=== PATIENT | male | born 1980 | race Caucasian/White ===

== ENCOUNTER 2016-11-29 17:04 | Emergency (ER) | payer OTHER ==
[2016-11-29 17:16] VITALS: BP 112/73; PULSE 88; TEMP 99; BMI 28.6
[2016-11-29] MEDS ORDERED: IBUPROFEN 400 MG TABLET (FP) PO ONE ×2 (18:13→18:16)
--- NOTE | 2016-11-29 18:17 | PDOC ---
History of Present Illness - General Chief Complaint: Cold Symptoms Stated Complaint: COLD SYMPTOMS Time Seen by Provider: 11/29/16 17:54 History Source: Patient - History of Present Illness Timing/Duration: reports: other Severity: reports: moderate Associated Symptoms: reports: chest pain/soreness, cough, fever/chills, nasal congestion, shortness of breath. denies: earache, facial pain, sore throat Past History - Past Medical History Allergies/Adverse Reactions: Allergies Allergy/AdvReac Type Severity Reaction Status Date / Time No Known Allergies Allergy Verified 11/29/16 17:13 Home Medications: Ambulatory Orders Emtricitabine/Tenofovir [Truvada Tablet] 1 each PO DAILY 01/30/13 Indinavir Sulfate [Crixivan] 0 mg PO DAILY 08/01/14 Ritonavir [Norvir] 100 mg PO DAILY 08/01/14 Darunavir Ethanolate [Prezista] 800 mg PO DAILY tablet 08/02/14 Ibuprofen 800 mg PO TID PRN #20 tablet 03/22/16 Anemia: No Asthma: No Cancer: No Cardiac Disorders: No CVA: No COPD: No CHF: No Dementia: No Diabetes: No GI Disorders: No Disorders: No HTN: No Hypercholesterolemia: No HIV: Yes Liver Disease: No Suicide Attempt (Hx): No Seizures: No Thyroid Disease: No - Surgical History Abdominal Surgery: No Appendectomy: No Cardiac Surgery: No Cholecystectomy: No Lung Surgery: No Neurologic Surgery: No Orthopedic Surgery: No - Immunization History Immunization Up to Date: Yes - Psycho/Social/Smoking Cessation Hx Anxiety: No Suicidal Ideation: No Smoking Status: Yes Smoking History: Current some day smoker Have you smoked in the past 12 months: Yes Number of Cigarettes Smoked Daily: 2 Cigars Per Day: 0 Information on smoking cessation initiated: No 'Breaking Loose' booklet given: 12/02/13 Hx Alcohol Use: No Drug/Substance Use Hx: No Substance Use Type: Alcohol Hx Substance Use Treatment: No Respiratory Specific PMHX - Complaint Specific PMHX TB (Tuberculosis): No Review of Systems - Review of Systems Constitutional: Yes: Chills, Fever, Malaise HEENTM: No: Ear Pain, Throat Pain Respiratory: Yes: Cough, Shortness of Breath. No: Wheezing ABD/GI: No: Diarrhea, Nausea, Vomiting *Physical Exam - Vital Signs Last Vital Signs Temp Pulse Resp BP Pulse Ox 99 F 88 20 112/73 97 11/29/16 17:13 11/29/16 17:13 11/29/16 17:13 11/29/16 17:13 11/29/16 17:13 - Physical Exam General Appearance: Yes: Appropriately Dressed. No: Apparent Distress HEENT: positive: Normal ENT Inspection, Normal Voice. negative: Scleral Icterus (R), Scleral Icterus (L), Muffled/Hoarse voice Neck: positive: Supple. negative: Lymphadenopathy (R), Lymphadenopathy (L) Respiratory/Chest: positive: Lungs Clear, Normal Breath Sounds. negative: Respiratory Distress Cardiovascular: positive: Regular Rate, S1, S2 Integumentary: positive: Dry, Warm Neurologic: positive: Fully Oriented, Alert, Normal Mood/Affect ED Treatment Course - RADIOLOGY Radiology Studies Ordered: Category Date Time Status CHEST PA & LAT [RAD] Stat Radiology 11/29/16 18:14 Ordered Medical Decision Making - Medical Decision Making 11/29/16 18:14 36-year-old male smoker, HIV, on meds, last CD4 in the 800s, undetected VL, f/u at [facility], here with malaise with body aches, nasal congestion, cough with ? shortness of breath and subjective fevers 2 days. No DUARTE, dizziness, neck stiffness, photophobia, n/v/d. Not takign anything for symptoms. Patient stable in ED but appears uncomfortable with unremarkable exam otherwise. M/l viral syndrome, r/o influenza and pna given hx. Pain control in ED 11/29/16 18:17 11/29/16 18:59 Influenza neg and cxr neg. Dc w/ supportive tx *DC/Admit/Observation/Transfer Diagnosis at time of Disposition: Viral syndrome - Discharge Dispostion Disposition: HOME Condition at time of disposition: Stable - Patient Instructions Printed Discharge Instructions: DI for Viral Syndrome Additional Instructions: Rest, drink plenty of fluids and take tylenol or motrin as needed
== END 2016-11-29 19:10 | disposition home or self-care (01) ==
LOC: JERFT 17:04 → JER 17:04 → JERFT 19:10
DX: B34.9 Viral infection, unspecified (principal); Z21 Asymptomatic human immunodeficiency virus [HIV] infection status; F17.210 Nicotine dependence, cigarettes, uncomplicated
CPT/HCPCS: 71020-TC; 87804; 99281-25

== ENCOUNTER 2017-03-27 00:55 | Emergency (ER) | payer OTHER ==
[2017-03-27 01:12] VITALS: BMI 29.0
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
[2017-03-27] MEDS ORDERED: CLINDAMYCIN 600MG PREMIX IVPB 50 ML IVPB ONE ×2 (02:40→03:37)
[2017-03-27 02:59] LABS: BASOPHIL 0.7 % (0-2.0); EOSINOPHIL 1.2 % (0-4.5); MCH 32.3 pg (25.7-33.7); MCHC 33.2 g/dl (32.0-35.9); MEAN CELL VOLUME 97.4 fl (80-96); MEAN PLT VOLUME 7.9 fl (7.5-11.1); PLATELET COUNT 214 K/MM3 (134-434); RDW 13.9 % (11.9-15.9); WHITE BLOOD COUNT 10.1 K/mm3 (4.0-10.0)
[2017-03-27 03:23] LABS: ALK PHOS 73 U/L (45-117); ANION GAP 12 (8-16); CALCIUM 9.1 mg/dL (8.5-10.1); CO2 26 mmol/L (21-32); CREATININE 1.2 mg/dL (0.7-1.3); GLUCOSE,RANDOM 105 mg/dL (74-106); SGPT/ALT 39 U/L (12-78); TOT PROT 7.1 g/dl (6.4-8.2)
[2017-03-27 03:27] LABS: SGOT/AST 82 U/L (15-37)
[2017-03-27 04:28] VITALS: BP 120/74; PULSE 72; TEMP 97.8
== END 2017-03-27 04:28 | disposition home or self-care (01) ==
LOC: JER 00:55
DX: S00.83XA Contusion of other part of head, initial encounter (principal); S20.212A Contusion of left front wall of thorax, initial encounter; K04.7 Periapical abscess without sinus; Y04.2XXA Assault by strike against or bumped into by another person, initial encounter; Y93.89 Activity, other specified; Y92.59 Other trade areas as the place of occurrence of the external cause
CPT/HCPCS: 36415; 70450-TC; 70486-TC; 71250-TC; 80053; 85025; 87040; 99283-25

== ENCOUNTER 2017-06-04 10:01 | Emergency (ER) | payer OTHER ==
[2017-06-04 10:07] VITALS: TEMP 98; BMI 28.9
--- NOTE | 2017-06-04 10:26 | PDOC ---
History of Present Illness - General Chief Complaint: Revisit, Lab Variance Stated Complaint: PCP SENT/ [facility] Time Seen by Provider: 06/04/17 10:24 History Source: Patient Exam Limitations: No Limitations - History of Present Illness Initial Comments: 06/04/17 10:25 was sent for repeat potassium Past History - Travel Traveled outside of the country in the last 30 days: Yes Close contact w/someone who was outside of country & ill: Yes - Past Medical History Allergies/Adverse Reactions: Allergies Allergy/AdvReac Type Severity Reaction Status Date / Time No Known Allergies Allergy Verified 06/04/17 10:06 Home Medications: Ambulatory Orders Emtricitabine/Tenofovir [Truvada Tablet] 1 each PO DAILY 01/30/13 Indinavir Sulfate [Crixivan] 0 mg PO DAILY 08/01/14 Ritonavir [Norvir] 100 mg PO DAILY 08/01/14 Darunavir Ethanolate [Prezista] 800 mg PO DAILY tablet 08/02/14 Ibuprofen 800 mg PO TID PRN #20 tablet 03/22/16 Clindamycin [Cleocin -] 300 mg PO Q6HPO #28 capsule 03/27/17 Anemia: No Asthma: No Cancer: No Cardiac Disorders: No CVA: No COPD: No CHF: No Dementia: No Diabetes: No GI Disorders: No Disorders: No HTN: No Hypercholesterolemia: Yes HIV: Yes Liver Disease: No Suicide Attempt (Hx): No Seizures: No Thyroid Disease: No - Surgical History Abdominal Surgery: No Appendectomy: No Cardiac Surgery: No Cholecystectomy: No Lung Surgery: No Neurologic Surgery: No Orthopedic Surgery: No - Immunization History Immunization Up to Date: Yes - Psycho/Social/Smoking Cessation Hx Anxiety: No Suicidal Ideation: No Smoking Status: Yes Smoking History: Current some day smoker Have you smoked in the past 12 months: Yes Number of Cigarettes Smoked Daily: 5 Cigars Per Day: 0 Information on smoking cessation initiated: No 'Breaking Loose' booklet given: 12/02/13 Hx Alcohol Use: No Drug/Substance Use Hx: No Substance Use Type: Alcohol Hx Substance Use Treatment: No Review of Systems - Review of Systems Able to Perform ROS?: Yes Is the patient limited Nepali proficient: Yes Constitutional: Yes: Symptoms Reported *Physical Exam - Vital Signs Last Vital Signs Temp Pulse Resp BP Pulse Ox 98 F 64 18 129/78 99 06/04/17 10:03 06/04/17 10:03 06/04/17 10:03 06/04/17 10:03 06/04/17 10:03
--- NOTE | 2017-06-04 10:41 | PDOC ---
History of Present Illness - General Chief Complaint: Revisit, Lab Variance Stated Complaint: PCP SENT/ [facility] Time Seen by Provider: 06/04/17 10:24 History Source: Patient - History of Present Illness Associated Symptoms: denies: chest pain, cough, fever/chills, headaches, malaise , nausea/vomiting, shortness of breath, weakness Past History - Past Medical History Allergies/Adverse Reactions: Allergies Allergy/AdvReac Type Severity Reaction Status Date / Time No Known Allergies Allergy Verified 06/04/17 10:06 Home Medications: Ambulatory Orders Emtricitabine/Tenofovir [Truvada Tablet] 1 each PO DAILY 01/30/13 Indinavir Sulfate [Crixivan] 0 mg PO DAILY 08/01/14 Ritonavir [Norvir] 100 mg PO DAILY 08/01/14 Darunavir Ethanolate [Prezista] 800 mg PO DAILY tablet 08/02/14 Ibuprofen 800 mg PO TID PRN #20 tablet 03/22/16 Clindamycin [Cleocin -] 300 mg PO Q6HPO #28 capsule 03/27/17 Anemia: No Asthma: No Cancer: No Cardiac Disorders: No CVA: No COPD: No CHF: No Dementia: No Diabetes: No GI Disorders: No Disorders: No HTN: No Hypercholesterolemia: Yes HIV: Yes Liver Disease: No Suicide Attempt (Hx): No Seizures: No Thyroid Disease: No - Surgical History Abdominal Surgery: No Appendectomy: No Cardiac Surgery: No Cholecystectomy: No Lung Surgery: No Neurologic Surgery: No Orthopedic Surgery: No - Immunization History Immunization Up to Date: Yes - Psycho/Social/Smoking Cessation Hx Anxiety: No Suicidal Ideation: No Smoking Status: Yes Smoking History: Current some day smoker Have you smoked in the past 12 months: Yes Number of Cigarettes Smoked Daily: 5 Cigars Per Day: 0 Information on smoking cessation initiated: No 'Breaking Loose' booklet given: 12/02/13 Hx Alcohol Use: No Drug/Substance Use Hx: No Substance Use Type: Alcohol Hx Substance Use Treatment: No Review of Systems - Review of Systems Is the patient limited Armenian proficient: Yes Constitutional: No: Chills, Fever, Malaise, Weakness HEENTM: No: Blurred Vision Respiratory: No: Cough, Shortness of Breath Cardiac (ROS): No: Chest Pain ABD/GI: No: Diarrhea, Nausea, Vomiting : No: Dysuria *Physical Exam - Vital Signs Last Vital Signs Temp Pulse Resp BP Pulse Ox 98 F 64 18 129/78 99 06/04/17 10:03 06/04/17 10:03 06/04/17 10:03 06/04/17 10:03 06/04/17 10:03 - Physical Exam General Appearance: Yes: Appropriately Dressed. No: Apparent Distress HEENT: positive: Normal Voice Neck: positive: Supple Respiratory/Chest: positive: Lungs Clear, Normal Breath Sounds. negative: Respiratory Distress Cardiovascular: positive: Regular Rate, S1, S2 Gastrointestinal/Abdominal: positive: Soft. negative: Tender Extremity: positive: Normal Inspection Integumentary: positive: Dry, Warm Neurologic: positive: Fully Oriented, Alert, Normal Mood/Affect Heart Score/ECG Review - ECG Intrepretation Comment:: 06/04/17 10:42 NSR w/ ?peaked Ts, no ST-T wave changes otherwise ED Treatment Course - LABORATORY CBC & Chemistry Diagram: 06/04/17 10:48 06/04/17 10:27 Medical Decision Making - Medical Decision Making 06/04/17 10:34 36-year-old male history of HIV on medications, CD4 in the 500s.UD VL, here for repeat blood work. Patient states he went for his checkup with his PMD at [facility] 5 days ago and received call yesterday that his potassium was "high" but does not remember number. Is not complaining of any acute medical symptoms at this time. Of note, pt admitted to ED nurse that he currently drinks "banana shakes" several times per day See exam Hyperkalemia on routine blood work this week No acute medical complaints Stable and well payam w/ unremarkable exam -ekg -labs -dispo pending 06/04/17 10:41 06/04/17 11:51 K 4.5. Rest of labs normal. Will dc w/ continued PMD f/u. Pt instructed to decrease his banana shake consumption as possibly attributed to prior elevated K *DC/Admit/Observation/Transfer Diagnosis at time of Disposition: Laboratory test - Discharge Dispostion Disposition: HOME Condition at time of disposition: Good - Patient Instructions Printed Discharge Instructions: DI for Hyperkalemia Additional Instructions: Your potassium was normal today at 4.5. Bananas are rich in potassium. Consider decreasing your consumption. Follow up with your PMD
[2017-06-04 11:03] LABS: BASOPHIL 0.9 % (0-2.0); MCH 33.4 pg (25.7-33.7); MCHC 33.6 g/dl (32.0-35.9); MEAN CELL VOLUME 99.4 fl (80-96); MEAN PLT VOLUME 7.5 fl (7.5-11.1); NEUTROPHILS 54.8 % (42.8-82.8); PLATELET COUNT 200 K/MM3 (134-434); RDW 13.9 % (11.9-15.9); WHITE BLOOD COUNT 6.7 K/mm3 (4.0-10.0)
[2017-06-04 11:21] LABS: URINE APPEARANCE CLEAR; URINE BILIRUBIN NEGATIVE (NEGATIVE); URINE BLOOD 1+ (NEGATIVE); URINE COLOR STRAW; URINE GLUCOSE (UA) NEGATIVE (NEGATIVE); URINE KETONE NEGATIVE (NEGATIVE); URINE LEUK ESTERASE NEGATIVE (NEGATIVE); URINE NITRITE NEGATIVE (NEGATIVE); URINE PROTEIN NEGATIVE (NEGATIVE); URINE UROBILINOGEN NEGATIVE mg/dL (0.2-1.0)
[2017-06-04 11:27] LABS: URINE MUCUS RARE; URINE RBC <1 /hpf (0-3)
[2017-06-04 11:35] LABS: ALK PHOS 70 U/L (45-117); ANION GAP 6 (8-16); BILIRUBIN,TOTAL 0.5 mg/dL (0.2-1.0); CALCIUM 9.3 mg/dL (8.5-10.1); CO2 25 mmol/L (21-32); CREATININE 0.9 mg/dL (0.7-1.3); GLUCOSE,RANDOM 92 mg/dL (74-106); SGOT/AST 29 U/L (15-37); SGPT/ALT 35 U/L (12-78); TOT PROT 7.3 g/dl (6.4-8.2)
[2017-06-04 12:24] VITALS: BP 118/65; PULSE 72
--- NOTE | 2017-06-05 09:14 | EKG ---
Test Reason : Blood Pressure : / mmHG Vent. Rate : 058 BPM Atrial Rate : 058 BPM P-R Int : 158 ms QRS Dur : 090 ms QT Int : 404 ms P-R-T Axes : 043 062 025 degrees QTc Int : 396 ms SINUS BRADYCARDIA OTHERWISE NORMAL ECG NO PREVIOUS ECGS AVAILABLE Confirmed by WILL DONNELLY MD ([id number]) on 06/05/2017 9:14:05 AM Referred By: Confirmed By:WILL DONNELLY MD
== END 2017-06-04 12:24 | disposition home or self-care (01) ==
LOC: JERFT 10:01 → JER 10:01
DX: E87.5 Hyperkalemia (principal); E78.00 Pure hypercholesterolemia, unspecified; Z21 Asymptomatic human immunodeficiency virus [HIV] infection status
CPT/HCPCS: 36415; 80053; 81003; 81015; 85025; 93005; 93010; 99284-25

== ENCOUNTER 2019-02-27 07:32 | Emergency (ER) | payer OTHER ==
[2019-02-27 07:44] VITALS: BMI 28.7
[2019-02-27] MEDS ORDERED: SODIUM CHLORIDE 1,000 ML IV STA (08:21)
[2019-02-27] MEDS ORDERED: METOCLOPRAMIDE HCL INJECTION 10 MG/2 ML VIAL IVPUSH ONE (08:22)
[2019-02-27] MEDS ORDERED: METOCLOPRAMIDE HCL INJECTION 10 MG/2 ML VIAL ONE (08:38)
[2019-02-27 09:15] LABS: BASO % 0.3 % (0-2.0); EOS % 1.3 % (0-4.5); HEMATOCRIT 41.9 % (35.4-49); HEMOGLOBIN 14.2 GM/dL (11.7-16.9); LYMPH % 28.4 % (8-40); MCH 32.4 pg (25.7-33.7); MCHC 33.8 g/dl (32.0-35.9); MEAN CELL VOLUME 95.8 fl (80-96); MEAN PLT VOLUME 7.3 fl (7.5-11.1); MONO % 9.2 % (3.8-10.2); NEUT % 60.8 % (42.8-82.8); PLATELET COUNT 235 K/MM3 (134-434); RBC 4.38 M/mm3 (4.00-5.60); RDW 13.6 % (11.9-15.9); WHITE BLOOD COUNT 6.3 K/mm3 (4.0-10.0)
--- NOTE | 2019-02-27 09:35 | PDOC ---
Documentation entered by Marly Anthony SCRIBE, acting as scribe for Jose Douglas MD. Jose Douglas MD: This documentation has been prepared by the Gabrielle birmingham Sammi, SCRIBE, under my direction and personally reviewed by me in its entirety. I confirm that the documentation accurately reflects all work, treatment, procedures, and medical decision making performed by me. History of Present Illness - General Chief Complaint: Syncope/Near Syncope Stated Complaint: SYNCOPE,VOMITING Time Seen by Provider: 02/27/19 07:44 - History of Present Illness Initial Comments: 02/27/19 08:30 Patient is a 38 year old male, who presents s/p syncope. Patient complaining of 1 week of dizziness, aggravated with movement, with associated nausea, head pain and echo in ears. Denies vomit. notes the patient passed out for 3 -4 seconds. Patient has history of high cholesterol and is HIV positive. Past History - Past Medical History Allergies/Adverse Reactions: Allergies Allergy/AdvReac Type Severity Reaction Status Date / Time No Known Allergies Allergy Verified 02/27/19 07:40 Home Medications: Ambulatory Orders Darunavir Ethanolate [Prezista] 800 mg PO DAILY tablet 08/02/14 Elviteg/Cob/Emtri/Tenof Alafen [Genvoya (Non-Formulary)] 2 each PO DAILY Fenofibrate Nanocrystallized [Fenofibrate] 145 mg PO DAILY 02/27/19 Meclizine HCl [Antivert -] 25 mg PO TID #21 tablet 02/27/19 Pravastatin Sodium [Pravachol (Nf)] 20 mg PO HS 02/27/19 Anemia: No Asthma: No Cancer: No Cardiac Disorders: No CVA: No COPD: No CHF: No Dementia: No Diabetes: No GI Disorders: No Disorders: No HTN: No Hypercholesterolemia: No Liver Disease: No Seizures: No Thyroid Disease: No - Surgical History Abdominal Surgery: No Appendectomy: No Cardiac Surgery: No Cholecystectomy: No Lung Surgery: No Neurologic Surgery: No Orthopedic Surgery: No - Immunization History Immunization Up to Date: Yes - Suicide/Smoking/Psychosocial Hx Smoking Status: Yes Smoking History: Never smoked Have you smoked in the past 12 months: Yes Number of Cigarettes Smoked Daily: 2 Cigars Per Day: 0 'Breaking Loose' booklet given: 12/02/13 Hx Alcohol Use: No Drug/Substance Use Hx: No Substance Use Type: Alcohol Hx Substance Use Treatment: No Review of Systems - Review of Systems Comments:: 02/27/19 08:30 CONSTITUTIONAL: (+)dizzy. No fever, no chills, no fatigue EYES: No visual changes ENT: No ear pain, no sore throat CARDIOVASCULAR: No chest pain, no palpitations RESPIRATORY: No cough, no SOB GI: (+)nausea. No abdominal pain, no vomiting, no constipation, no diarrhea GENITOURINARY: No dysuria, no frequency, no hematuria MUSKULOSKELETAL: No backpain, no joint pain, no myalgias SKIN: No rash NEURO: (+)headache *Physical Exam - Vital Signs Last Vital Signs Temp Pulse Resp BP Pulse Ox 97.6 F 58 L 18 122/75 99 02/27/19 07:41 02/27/19 07:41 02/27/19 07:41 02/27/19 07:41 02/27/19 07:41 - Physical Exam Comments: 02/27/19 09:34 EXAMINATION CONSTITUTIONAL: Awake and alert; well-nourished; in no apparent distress HEAD: Normocephalic; atraumatic EYES: PERRL; EOM intact; + right sided endpoint nystagmus, fatigable, ENMT: External appears normal; normal oropharynx; nl TMs bilaterally NECK: Supple; non-tender; no cervical lymphadenopathy CARD: Normal S1, S2; no murmurs, rubs, or gallops RESP: Normal chest excursion with respiration; breath sounds clear and equal bilaterally; no wheezes, rhonchi, or rales ABD: Soft, non-distended; non-tender; no palpable organomegaly, no palpable hernias EXT: Normal ROM in all four extremities; non-tender to palpation; distal pulses intact SKIN: Warm, dry, no rash NEURO: Cranial nerves II through XII are grossly intact; motor is 5 of 54; no pronation drift; no dysmetria; finger to nose is normal bilaterally; rapid alternating movements are intact bilaterally. Darcy-Hallpike maneuver is positive. Gait-deferred. Heart Score/ECG Review - ECG Intrepretation Comment:: 02/27/19 09:36 Bradycardic otherwise normal. ED Treatment Course - LABORATORY CBC & Chemistry Diagram: 02/27/19 09:00 02/27/19 09:00 - ADDITIONAL ORDERS Additional order review: 02/27/19 09:00 RBC 4.38 MCV 95.8 MCHC 33.8 RDW 13.6 MPV 7.3 L Neutrophils % 60.8 Lymphocytes % 28.4 Monocytes % 9.2 Eosinophils % 1.3 Basophils % 0.3 - RADIOLOGY Radiology Studies Ordered: Category Date Time Status HEAD CT WITHOUT CONTRAST [CT] Stat CT Scan 02/27/19 08:20 Ordered - Medications Given in the ED: ED Medications Discontinued Medications Generic Name Dose Route Start Last Admin Trade Name Freq PRN Reason Stop Dose Admin Diphenhydramine HCl 25 mg 02/27/19 08:22 02/27/19 08:50 Benadryl Injection - IVPB 02/27/19 08:23 25 mg ONCE ONE Administration Sodium Chloride 1,000 mls @ 1,000 mls/hr 02/27/19 08:21 02/27/19 08:50 Normal Saline - IV 02/27/19 09:20 1,000 mls/hr ASDIR STA Administration Metoclopramide HCl 10 mg 02/27/19 08:22 02/27/19 08:50 Reglan Injection - IVPUSH 02/27/19 08:23 10 mg ONCE ONE Administration Medical Decision Making - Medical Decision Making 02/27/19 10:44 Patient is a 38-year-old male with history of HIV, CD4 count of 980, viral load undetectable, on HAART who presents with signs and symptoms of benign positional vertigo. Patient's symptoms are not consistent with centrally induced vertigo. We'll administer Reglan and Benadryl. Will hydrate. Will reassess. 02/27/19 11:16 Patient reassessed. Patient is resting comfortably and is currently symptom free. CT of head shows no evidence acute intracranial pathology. CBC/CMP within normal limit. There is no significant leukocytosis or anemia. Patient tolerates by mouth. Will discharge with vertigo, by mouth meclizine and neurology follow- up as needed. 02/27/19 13:15 Patient is resting comfortably, symptom-free. Second set of cardiac enzymes within normal limit. I do not suspect ACS at this time will discharge with meclizine and ENT follow-up. *DC/Admit/Observation/Transfer Diagnosis at time of Disposition: Vertigo Syncope Qualifiers: Syncope type: unspecified Qualified Code(s): R55 - Syncope and collapse - Discharge Dispostion Disposition: HOME Condition at time of disposition: Stable - Referrals Referrals: Pradip Nguyễn MD [Primary Care Provider] - León Ayoub MD [Staff Physician] - - Patient Instructions Printed Discharge Instructions: DI for Syncope in Adults (Fainting), DI for Vertigo Print Language: ESTONIAN - Post Discharge Activity Forms/Work/School Notes: Back to Work - Attestations Physician Attestion: 02/27/19 09:33 The documentation was prepared by the scribe under my direct supervision. I have reviewed the documentation which correctly represents the findings, medical decision-making and critical action taken by me.
[2019-02-27 09:41] LABS: ALBUMIN 3.8 g/dl (3.4-5.0); ALK PHOS 61 U/L (45-117); ANION GAP 2 MMOL/L (8-16); BILIRUBIN,TOTAL 0.2 mg/dL (0.2-1); BLOOD UREA NITROGEN 13 mg/dL (7-18); CALCIUM 8.7 mg/dL (8.5-10.1); CHLORIDE 107 mmol/L (98-107); CO2 28 mmol/L (21-32); CREATININE 0.9 mg/dL (0.55-1.3); GLUCOSE,RANDOM 100 mg/dL (74-106); POTASSIUM 4.4 mmol/L (3.5-5.1); SGOT/AST 28 U/L (15-37); SGPT/ALT 42 U/L (13-61); SODIUM 137 mmol/L (136-145); TOT PROT 7.1 g/dl (6.4-8.2)
--- NOTE | 2019-02-27 12:25 | EKG ---
Test Reason : Blood Pressure : / mmHG Vent. Rate : 049 BPM Atrial Rate : 049 BPM P-R Int : 180 ms QRS Dur : 096 ms QT Int : 472 ms P-R-T Axes : 040 033 016 degrees QTc Int : 426 ms SINUS BRADYCARDIA NONSPECIFIC T WAVE ABNORMALITY ABNORMAL ECG WHEN COMPARED WITH ECG OF 04-JUN-2017 10:35, NONSPECIFIC T WAVE ABNORMALITY NOW EVIDENT IN LATERAL LEADS Confirmed by ANAND RAMIREZ, CHIDI ([id number]) on 02/27/2019 12:25:35 PM Referred By: Confirmed By:CHIDI MICHEL MD
[2019-02-27 14:22] VITALS: BP 111/68; PULSE 54; TEMP 98
== END 2019-02-27 14:22 | disposition home or self-care (01) ==
LOC: JER 07:32
PROC: 3E033GC Introduction of Other Therapeutic Substance into Peripheral Vein, Percutaneous Approach (ICD-10-PCS; principal; 2019-02-27)
PROC: 3E0337Z Introduction of Electrolytic and Water Balance Substance into Peripheral Vein, Percutaneous Approach (ICD-10-PCS; 2019-02-27)
DX: R42 Dizziness and giddiness (principal); R55 Syncope and collapse; Z21 Asymptomatic human immunodeficiency virus [HIV] infection status
CPT/HCPCS: 36415; 70450-TC; 80053; 82550; 82553; 84484; 85025; 93005; 93010; 99284-25; J7030

== ENCOUNTER 2021-08-25 15:11 | Emergency (ER) | payer OTHER ==
[2021-08-25 15:47] VITALS: BP 128/75; PULSE 78; TEMP 98.1; BMI 34.0
[2021-08-25] MEDS ORDERED: ACETAMINOPHEN 1000 MG/100 ML VIAL IVPB ONE (17:07)
[2021-08-25] MEDS ORDERED: SODIUM CHLORIDE 1,000 ML IV STA (17:07)
[2021-08-25] MEDS ORDERED: METOCLOPRAMIDE HCL INJECTION 10 MG/2 ML VIAL IVPB ONE (17:07)
[2021-08-25] MEDS ORDERED: ACETAMINOPHEN INJECTION 100 ML IVPB ONE (17:14)
[2021-08-25] MEDS ORDERED: METOCLOPRAMIDE HCL INJECTION 10 MG/2 ML VIAL ONE (17:14)
[2021-08-25 18:17] LABS: BASO % 0.4 % (0-2.0); EOS % 1.1 % (0-4.5); HEMATOCRIT 39.8 % (35.4-49); HEMOGLOBIN 13.5 GM/dL (11.7-16.9); LYMPH % 41.5 % (8-40); MCH 32.6 pg (25.7-33.7); MEAN CELL VOLUME 95.7 fl (80-96); MEAN PLT VOLUME 7.5 fl (7.5-11.1); MONO % 11.5 % (3.8-10.2); NEUT % 45.5 % (42.8-82.8); PLATELET COUNT 207 10^3/uL (134-434); RBC 4.15 M/mm3 (4.00-5.60); RDW 13.5 % (11.9-15.9); WHITE BLOOD COUNT 7.2 K/mm3 (4.0-10.0)
[2021-08-25 18:29] LABS: ALBUMIN 3.8 g/dl (3.4-5.0); BLOOD UREA NITROGEN 14.8 mg/dL (7-18); CALCIUM 8.7 mg/dL (8.5-10.1)
[2021-08-25] MEDS ORDERED: KETOROLAC TROMETHAMINE 60 MG/2 ML VIAL IVPUSH ONE (18:31)
[2021-08-25 18:32] LABS: CREATININE 0.9 mg/dL (0.55-1.3)
[2021-08-25 18:34] LABS: BILIRUBIN,TOTAL 0.6 mg/dL (0.2-1); TOT PROT 7.4 g/dl (6.4-8.2)
[2021-08-25] MEDS ORDERED: KETOROLAC TROMETHAMINE 15 MG/ML VIAL ONE (18:36)
== END 2021-08-25 20:00 | disposition home or self-care (01) ==
LOC: JER 15:11
PROC: 3E033NZ Introduction of Analgesics, Hypnotics, Sedatives into Peripheral Vein, Percutaneous Approach (ICD-10-PCS; principal; 2021-08-25)
PROC: 3E033GC Introduction of Other Therapeutic Substance into Peripheral Vein, Percutaneous Approach (ICD-10-PCS; 2021-08-25)
PROC: 3E033GC Introduction of Other Therapeutic Substance into Peripheral Vein, Percutaneous Approach (ICD-10-PCS; 2021-08-25)
PROC: 3E0337Z Introduction of Electrolytic and Water Balance Substance into Peripheral Vein, Percutaneous Approach (ICD-10-PCS; 2021-08-25)
PROC: 3E0333Z Introduction of Anti-inflammatory into Peripheral Vein, Percutaneous Approach (ICD-10-PCS; 2021-08-25)
DX: G43.909 Migraine, unspecified, not intractable, without status migrainosus (principal)
CPT/HCPCS: 36415; 70450-TC; 80053; 85025; 99285-25; J0131

== ENCOUNTER 2022-05-15 20:05 | Emergency (ER) | payer OTHER ==
[2022-05-15 20:13] VITALS: BP 121/76; PULSE 75; TEMP 98.4; BMI 31.0
[2022-05-15 22:22] LABS: THROAT:GRP A STREP NOT DETECTED (NOTDETECTED)
[2022-05-15] MEDS ORDERED: KETOROLAC TROMETHAMINE 30 MG/1 ML VIAL IM ONE (22:28)
[2022-05-15] MEDS ORDERED: DEXAMETHASONE SOD PHOSPHATE 10 MG/1 ML VIAL IM ONE (22:28)
[2022-05-15] MEDS ORDERED: KETOROLAC TROMETHAMINE 30 MG/1 ML VIAL ONE (22:52)
[2022-05-15] MEDS ORDERED: DEXAMETHASONE SOD PHOSPHATE 10 MG/1 ML VIAL ONE (22:52)
== END 2022-05-15 23:00 | disposition home or self-care (01) ==
LOC: JER 20:05
PROC: 3E023GC Introduction of Other Therapeutic Substance into Muscle, Percutaneous Approach (ICD-10-PCS; principal; 2022-05-15)
DX: J02.8 Acute pharyngitis due to other specified organisms (principal)
CPT/HCPCS: 0241U-QW; 87651; 99284-25; J1100